=== PATIENT | male | born 1990 | race Caucasian/White ===

== ENCOUNTER 2020-11-16 10:15 | Emergency (ER) | payer SELFPAY ==
--- NOTE | ~2020-11-16 | XR_ITS ---
EXAMINATION: XR abdomen/kub 1V INDICATION: Severe left flank pain TECHNIQUE: Supine views of the abdomen were obtained on 2 radiographs. COMPARISON: CT from today FINDINGS: A 6 mm calcification projects in the left pelvis at the expected location of the distal ure ter. The bowel gas pattern is normal. The visualized lung bases are clear. IMPRESSION: 1. 6 mm stone of the distal left ureter. Reviewed, dictated and finalized at location A.
--- NOTE | ~2020-11-16 | CT_ITS ---
EXAMINATION: CT abdomen pelvis wo con DATE: 11/16/2020 12:29 INDICATION: Left flank pain TECHNIQUE: Computed tomography (CT) of the abdomen and pelvis was performed without intravenous contr ast. The dose-length product (DLP) was 181.41 mGy-cm. Automated exposure control and iterative recons truction technique were employed. COMPARISON: None FINDINGS: The lung bases are clear. The heart size is normal. The liver, spleen, pancreas, gallbladde r, and adrenal glands are normal. There is a 6 mm stone in the left distal ureter which causes mild l eft hydroureteronephrosis. The kidneys are unremarkable. No pathologically enlarged abdominal or pelv ic lymph nodes are identified. There is no free intraperitoneal gas or evidence of bowel obstruction. The appendix is normal. The visualized osseous structures are unremarkable. IMPRESSION: 1. 6 mm stone in the left distal ureter causing mild hydroureteronephrosis. Reviewed, dictated and finalized at location A.
[2020-11-16 10:25] VITALS: BP 149/105; PULSE 109; RESP 20; TEMP 36.3; O2SAT 100
--- NOTE | 2020-11-16 10:52 | PC.NURSE ---
Pt was made aware of needing urine sample. Registration went into pts room and sent pt to urinate without getting sample. Pt made aware again of needing urine. Pt is also on bed asking to take a hot shower. Informed pt that we dont have showers in ED.
[2020-11-16 11:23] LABS: Basophils Percent Auto 0.2 % (0.2-1.2); Hematocrit 43.3 % (42.0-52.0); Hemoglobin 14.4 g/dL (14.0-18.0); Immature Granulocyte Absolute 0.02 K/mm3 (0.00-0.031); Immature Granulocyte Percent A 0.2 % (0-0.5); Lymphocytes Absolute Auto 0.81 K/mm3 (0.9-3.2); Lymphocytes Percent Auto 6.6 % (18.3-44.2); Mean Corpuscular HGB Conc 33.3 g/dl (32-36); Mean Corpuscular Hemoglobin 28.9 pg (26-34); Mean Corpuscular Volume 86.8 fl (80-100); Mean Platelet Volume 9.7 fl (7.4-10.4); Monocytes Absolute Auto 0.5 K/mm3 (0.1-0.6); Monocytes Percent Auto 3.8 % (2.6-8.5); Neutrophils Absolute Auto 10.9 K/mm3 (1.3-6.7); Neutrophils Percent Auto 89.2 % (45.5-73.1); Platelet Count Result 238 k/mm3 (150-375); Red Blood Count 4.99 M/mm3 (4.6-6.20); Red Cell Distribution Width 12.6 % (11.5-14.5); White Blood Count 12.2 K/mm3 (4.5-10.0)
[2020-11-16 11:34] LABS: Anion Gap 10 mmol/L (8-16); Blood Urea Nitrogen 17 mg/dL (9-20); Calcium 9.9 mg/dL (8.4-10.2); Carbon Dioxide 28 mmol/L (22-30); Chloride 100 mmol/L (98-107); Estimated CRCL calculation 68 ml/min; Estimated Glomerular Filt Rate > 60; Glucose 120 mg/dL (75-110); Potassium 3.7 mmol/L (3.4-5.0); Sodium 138 mmol/L (137-145)
[2020-11-16] MEDS: MORPHINE SULFATE (*CRX) 4 MG/ML INJ IV PUSH (12:03)
--- NOTE | 2020-11-16 12:13 | ED.ABDPAIN ---
HPI - Abdominal Pain General Chief Complaint: Abdominal Pain Stated Complaint: left flank pain, bradycardia Time Seen by Provider: 11/16/20 11:31 History of Present Illness HPI narrative: Pain since last night. Started in the left flank. Acutely worse and migrated to the LLQ this morning. Associated with nausea and diarrhea. Feels like previous kidney stone. No hematuria, dysuria, fever. Related Data Allergies Allergy/AdvReac Type Severity Reaction Status Date / Time No Known Allergies Allergy Verified 11/16/20 13:17 Review of Systems Review of Systems: All systems reviewed & are unremarkable except as noted in HPI and below Constitutional: Constitutional: Denies fever(s) Cardiovascular: Cardiovascular: Denies chest pain Respiratory: Respiratory: Denies dyspnea Gastrointestinal: Gastrointestinal: Reports abdominal pain, Reports diarrhea, Reports nausea and Denies vomiting Genitourinary: Genitourinary: Denies hematuria and Denies dysuria Neurologic: Denies confusion and Denies weakness [facility] Past Medical History Medical History (Updated 11/16/20 @ 14:04 by Shivam Leonardo MD) Kidney stone Social History Social History (Updated 11/16/20 @ 14:02 by Shivam Leonardo MD) Gender identity (if verbalized by the patient): Male Sexual Orientation (if Verbalized by the Patient): Straight or Heterosexual Exam Const: General: no acute distress and alert Orientation/consciousness: patient oriented x3 HENMT: Head: normal to inspection Resp: Effort & Inspection: normal respiratory effort Auscultation: clear to auscultation bilaterally, no rales, no rhonchi and no wheezes Cardio: Jugular venous distension: no JVD Rate: regular rate Rhythm: regular rhythm Heart sounds: no murmurs GI: Inspection: non-distended GI Palp: Yes Soft to palpation and Yes Tenderness to palpation present (GI) (LLQ) : General: Yes no CVA tenderness Skin: General skin exam: normal color Neuro: General: patient oriented x3 and moves all extremities Speech: normal speech Extrem: General: no edema Psych: Appearance: well kempt Affect: normal affect Course Vital Signs Vital signs: Vital Signs Temperature 36.3 C L 11/16/20 10:25 Pulse Rate 109 H 11/16/20 10:25 Respiratory Rate 20 11/16/20 10:25 Blood Pressure 149/105 H 11/16/20 10:25 Pulse Oximetry 100 11/16/20 10:25 Temperature 36.3 C L 11/16/20 10:25 Pulse Rate 85 11/16/20 14:26 Respiratory Rate 17 11/16/20 14:26 Blood Pressure 138/76 11/16/20 14:26 Pulse Oximetry 99 11/16/20 14:26 MDM - Abdominal Pain MDM Narrative Medical decision making narrative: 6 mm left ureteral stone. Mild hydro. He should be appropriate for trial of passage at home. Differential Diagnosis Differential diagnosis: Likely calculus of kidney, constipation and diverticulitis Medical Records Attestation: I reviewed the patient's medical records. Lab Data Attestation: I reviewed the patient's lab results. Result diagrams: 11/16/20 11:18 11/16/20 11:18 Labs: Lab Results 11/16/20 11/16/20 11/16/20 Range/Units 11:18 11:18 14:09 WBC 12.2 H (4.5-10.0) K/mm3 RBC 4.99 (4.6-6.20) M/mm3 Hgb 14.4 (14.0-18.0) g/dL Hct 43.3 (42.0-52.0) % MCV 86.8 (80-100) fl MCH 28.9 (26-34) pg MCHC 33.3 (32-36) g/dl RDW 12.6 (11.5-14.5) % Plt Count 238 (150-375) k/mm3 MPV 9.7 (7.4-10.4) fl Immature Gran % (Auto) 0.2 (0-0.5) % Neut % (Auto) 89.2 H (45.5-73.1) % Lymph % (Auto) 6.6 L (18.3-44.2) % Daniels % (Auto) 3.8 (2.6-8.5) % Eos % (Auto) 0.0 (0-4.4) % Baso % (Auto) 0.2 (0.2-1.2) % Lymph # (Auto) 0.81 L (0.9-3.2) K/mm3 Daniels # (Auto) 0.5 (0.1-0.6) K/mm3 Eos # (Auto) 0.0 (0-0.3) K/mm3 Baso # (Auto) 0.0 (0.0-0.1) K/mm3 Abs Immat Gran (auto) 0.02 (0.00-0.031) K/mm3 Absolute Neuts (auto) 10.9 H (1.3-6.7) K/mm3 Absolute Nucleated RBC 0.0
[2020-11-16] MEDS: SODIUM CHLORIDE 0.9% IV 1,000 ML 999 ML IV CONT (12:39)
[2020-11-16] MEDS: TAMSULOSIN HCL 0.4 MG CAPSULE PO (12:40)
[2020-11-16] MEDS: KETOROLAC 30 MG/ML VIAL (*BKC) IV PUSH (13:19)
[2020-11-16 14:21] LABS: Add Urine Microscopic? YES; Appearance Urine Cloudy (Clear); Bacteria Urine Trace /hpf; Bilirubin Urine Negative (Negative); Blood Urine Negative (Negative); Color Urine Yellow (Yellow); Glucose Urine UA Negative (Negative); Ketones Urine Trace mg/dL (Negative); Leukocyte Esterase Ur Negative LEU/UL (Negative); Mucus Urine Heavy /lpf; Nitrate Urine Negative (Negative); Protein Urine 2+ mg/dL (Negative); Specific Grav Ur 1.026 (1.001-1.035); Urobilinogen Urine Negative mg/dL (<2.0); WBC Urine 0-3 /hpf
[2020-11-16 14:26] VITALS: BP 138/76; PULSE 85; RESP 17; O2SAT 99
== END 2020-11-16 14:27 | disposition home or self-care (01) ==
PROVIDERS: Emergency Provider Emergency Medicine
DX: N13.2 Hydronephrosis with renal and ureteral calculous obstruction (principal); Z87.442 Personal history of urinary calculi
CPT/HCPCS: 36415; 74018; 74176; 80048; 81001; 85025; 96361; 96374; 96375; 99284; A9270; J1885; J2270; J7030

== ENCOUNTER 2020-11-20 11:37 | Day surgery (SDC) | payer MEDICAID, SELFPAY ==
[2020-11-20] VITALS (14 sets, daily range): BP systolic 111–142; BP diastolic 58–87; PULSE 52–86; RESP 12–16; TEMP 36.1–36.9; O2SAT 98–100
--- NOTE | ~2020-11-20 | XR_ITS ---
EXAMINATION: XR retrograde pyelo w/stent LT DATE: 11/20/2020 16:43 INDICATION: Left stone extraction TECHNIQUE: Fluoroscopic images from a left internal ureteral stent placement are submitted for review . 36 seconds of fluoroscopy time. 53 fluoroscopic images. FINDINGS: There is a left double-J internal ureteral stent projecting in expected position, with proximal [place] loop at the level of the renal pelvis and distal loop in the pelvis within the bladder lumen. IMPRESSION: 1. Left internal ureteral stent placement. Please refer to real-time procedural findings for detail s. Reviewed, dictated and finalized at location B. IMPRESSION: 1. Left internal ureteral stent placement. Please refer to real-time procedur al findings for details.
--- NOTE | ~2020-11-20 | XR_ITS ---
EXAMINATION: XR abdomen/kub 1V INDICATION: Ureteral stone TECHNIQUE: Supine views of the abdomen were obtained on 2 radiographs. COMPARISON: 11/16/2020 FINDINGS: A 6 mm calcification projects in the left pelvis at the expected location of the distal lef t ureter. A phlebolith is noted in the right pelvis. The bowel gas pattern is normal. The visualized lung bases are clear. IMPRESSION: 1. 6 mm stone in the distal left ureter. Reviewed, dictated and finalized at location A.
--- NOTE | 2020-11-20 13:03 | ED.ABDPAIN ---
HPI - Abdominal Pain General Chief Complaint: Back Pain/Injury Stated Complaint: flank pain Time Seen by Provider: 11/20/20 11:46 Source: patient Mode of arrival: ambulatory Limitations: no limitations History of Present Illness HPI narrative: Patient is a 30 year old male who presents with left flank pain. Patient reports was seen for same on 11/16 and diagnosed with kidney stone. Patient reports he followed up with Dr. Booth. Patient reports he was instructed to return to ED if pain increases. Patient reports increasing pain today. He reports mild nausea. MD elicited complaint: flank pain Related Data Allergies Allergy/AdvReac Type Severity Reaction Status Date / Time No Known Allergies Allergy Verified 11/16/20 13:17 Review of Systems Review of Systems: Narrative: CONSTITUTIONAL: Denies fever, chills, or sweats. EYES: Denies visual changes, redness, or discharge. ENT: Denies rhinorrhea, congestion, sore throat, or otalgia. CARDIOVASCULAR: Denies chest pain, palpitations, or edema. RESPIRATORY: Denies cough or dyspnea. GASTROINTESTINAL: Reports nausea and vomiting GENITOURINARY: Left flank pain SKIN: Denies rash or itching. MUSCULOSKELETAL: Denies back pain, joint pain, or myalgia. NEUROLOGIC: Denies headache, numbness, dizziness, or weakness. PSYCHIATRIC: Denies anxiety or depression. [facility] Past Medical History Medical History Kidney stone Social History Social History (Updated 11/20/20 @ 13:07 by AMOR Diez) Smoking status: Current every day smoker Tobacco type: e-cigarettes/vaping Alcohol intake: never Substance use: current Substance use type: marijuana Other substance usage details: daily Living arrangements: with family Gender identity (if verbalized by the patient): Male Comments At the time of signature, I have reviewed and agree with nursing past medical, surgical, social, and family history unless otherwise noted. Please see nursing chart for further information. There is no relevant family history pertinent to the presenting complaint. Exam Narrative: Exam Narrative: GENERAL: Well-appearing, well-nourished, and in no acute distress. HEAD: Normocephalic, atraumatic. EYES: EOMI. No redness or drainage. Conjunctiva are normal. ENT: Mucous membranes pink and moist. CHEST: No respiratory distress. HEART: Regular rate and rhythm. GI: Soft, nontender without rebound, or guarding. EXTREMITIES: Normal range of motion. SKIN: Warm, dry, no rash. NEURO: No focal deficits. Alert and oriented x3. Gait steady. PSYCH: Normal affect. No signs of depression or anxiety. Course Consultations Consultation #1: Patient was seen by HEENA Aguilera, urology who requests UA and KUB and patient to go to the OR for stone removal this PM. Patient agrees with plan of care. Vital Signs Vital signs: Vital Signs Temperature 36.9 C 11/20/20 12:04 Pulse Rate 63 11/20/20 12:04 Respiratory Rate 12 11/20/20 12:04 Blood Pressure 129/58 L 11/20/20 12:04 Pulse Oximetry 99 11/20/20 12:04 Temperature 36.9 C 11/20/20 12:04 Pulse Rate 63 11/20/20 12:04 Respiratory Rate 12 11/20/20 12:04 Blood Pressure 129/58 L 11/20/20 12:04 Pulse Oximetry 99 11/20/20 12:04 Reviewed MDM - Abdominal Pain Differential Diagnosis Differential diagnosis: Likely abdominal pain, acute appendicitis, calculus of kidney, diverticulitis and pancreatitis Medical Records Attestation: I reviewed the patient's medical records. Critical Care Time Critical Care Time Critical Care Time: No Discharge Plan Discharge Clinical Impression: Left ureteral stone Patient Disposition: Still a Patient Condition: Stable Prescriptions: No Action hydrocodone-acetaminophen 5-325 mg tablet 1 tablet PO Q4H PRN (Reason: pain) Qty: 15 RF: 0 tamsulosin [Flomax] 0.4 mg capsule 0.4 mg PO DAILY Qty: 10 RF: 0 ketorolac 10 mg tab
--- NOTE | 2020-11-20 13:30 | WPDURCON ---
Assessment and Plan Assessment and plan (1) Left ureteral stone: Code(s): N20.1 - Calculus of ureter Status: Acute Assessment and Plan: Patient will go to the OR today: Cystoscopy, left ureteroscopy with stone extraction, possible left stent placement, possible retrograde pyelogram, possible holmium laser. Obtain Consent, keep NPO. Urology Consult Note HPI Date Seen: 11/20/20 Requesting Physician: Temitope Booth MD Primary Care Provider: SOFTWARE IMPLEMENTATION PROJECT MANAGER PHYSICIAN Consult Narrative Narrative: Uri Tse is a 30 year old male who presented to the ER on 11/16/2020 with left flank pain that radiates to the LLQ accompanied by nausea, vomiting, urinary frequency and urgency. He was diagnosed with a 6mm left distal ureteral stone visible on CT/KUB. He was discharged home to follow up in our office, in which he did with Dr. Booth on 11/18/2020 and was planned to then have his stone removed via our outpatient surgery center yesterday, however d/t cost they canceled the procedure. He is back today with ongoing, worsening pain in the LLQ which is well controlled by pain medication and use of marijuana, but when the pain medications no longer help, he is vomiting and having severe pain. He denies fever, but states he is having chills when the pain is severe. He denies hematuria. A KUB is ordered to confirm stone position and urinalysis is pending at this time. Review of Systems Respiratory: Respiratory: Denies no additional respiratory complaints Gastrointestinal: Gastrointestinal: Reports abdominal pain, Reports nausea and Reports vomiting Genitourinary: Genitourinary: Denies hematuria, Denies dysuria, Reports flank pain, Reports urinary frequency, Denies urinary hesitancy, Denies urinary incontinence and Reports urinary urgency [facility] Past Medical History Medical History Kidney stone Social History Social History Smoking status: Current every day smoker Tobacco type: e-cigarettes/vaping Alcohol intake: never Substance use: current Substance use type: marijuana Other substance usage details: daily Living arrangements: with family Gender identity (if verbalized by the patient): Male Meds Home Medications and Allergies Home Medications Medication Instructions Recorded Confirmed Type hydrocodone-acetaminophen 1 tablet PO Q4H PRN #15 tablet 11/16/20 Rx ketorolac 10 mg PO QID 5 Days #10 tablet 11/16/20 Rx tamsulosin [Flomax] 0.4 mg PO DAILY #10 cap 11/16/20 Rx Allergies Allergy/AdvReac Type Severity Reaction Status Date / Time No Known Allergies Allergy Verified 11/16/20 13:17 Vital Signs Vital Signs - 24 hr 11/20/20 12:04 Temperature 98.4 F Pulse Rate 63 Respiratory Rate 12 Blood Pressure 129/58 L Pulse Oximetry 99 Exam Resp: Effort & Inspection: normal respiratory effort Cardio: Rate: regular rate GI: GI Palp: Yes Soft to palpation and Yes Tenderness to palpation present (GI) (LLQ) : General: Yes CVA tenderness on the left Extrem: General: no edema
[2020-11-20 14:08] LABS: Add Urine Microscopic? YES; Appearance Urine Clear (Clear); Bacteria Urine Trace /hpf; Bilirubin Urine Negative (Negative); Blood Urine Negative (Negative); Color Urine Yellow (Yellow); Glucose Urine UA Negative (Negative); Ketones Urine 1+ mg/dL (Negative); Leukocyte Esterase Ur Negative LEU/UL (Negative); Mucus Urine Rare /lpf; Nitrate Urine Negative (Negative); Protein Urine 1+ mg/dL (Negative); RBC Urine 0-2 /hpf (0-2); Specific Grav Ur 1.028 (1.001-1.035); Squamous Epithelial Cell Urine Rare /hpf (Few); Urobilinogen Urine Negative mg/dL (<2.0)
[2020-11-20] MEDS: ONDANSETRON INJ 4 MG/2 ML VIAL IV PUSH ×2 (14:30→17:49)
[2020-11-20] MEDS: MORPHINE SULFATE (*CRX) 4 MG/ML INJ IV PUSH (14:30)
[2020-11-20] MEDS: LACTATED RINGERS 1,000 ML 30 ML IV CONT (14:45)
--- NOTE | 2020-11-20 15:43 | WPDHPUPDATE1 ---
History and Physical Update Update Date/Time: 11/20/20 15:43 History and Physical has been reviewed, including an updated exam of the patient. There are NO changes in the patient's condition. Risks, benefits, and alternatives have been discussed and questions answered. Patient agrees to proceed with procedure.
--- NOTE | 2020-11-20 15:55 | P.PNAN_ITS ---
Anes - Initial Pre Proc Eval Procedure: Operation Date: 11/20/20 16:45 Proposed Procedures p Cystoscopy,Left Ureteroscopy,Left Retrograde Pyelogram,Left Stone Extraction,Possible Holmium Laser,Possible Stent Placement - Temitope Booth MD Date/Time: 11/20/20 15:55 Surgeon: Temitope Booth MD Pre Op Diagnosis: flank pain Patient Data Age: 30 Gender: M Height: 1.85 m Weight: 72.6 kg Last Vital Signs Temp 36.1 C L 11/20/20 14:44 Pulse 57 L 11/20/20 14:44 Resp 16 11/20/20 14:44 BP 131/72 11/20/20 14:44 Pulse Ox 100 11/20/20 14:44 Allergies Allergy/AdvReac Type Severity Reaction Status Date / Time No Known Allergies Allergy Verified 11/20/20 15:26 Home Medications Medication Instructions Recorded Confirmed Type hydrocodone-acetaminophen 1 tablet PO Q4H PRN #15 tablet 11/16/20 11/20/20 Rx ketorolac 10 mg PO QID 5 Days #10 tablet 11/16/20 11/20/20 Rx tamsulosin [Flomax] 0.4 mg PO DAILY #10 cap 11/16/20 11/20/20 Rx Laboratory Tests 11/20/20 13:56 Urine Color Yellow (Yellow) Urine Appearance Clear (Clear) Urine pH 5.0 (5.0-9.0) Ur Specific [place] 1.028 (1.001-1.035) Urine Protein 1+ mg/dL H mg/dL (Negative) Urine Glucose (UA) Negative mg/dL mg/dL (Negative) Urine Ketones 1+ mg/dL H mg/dL (Negative) Ur Blood (Man) Negative (Negative) Urine Nitrate Negative (Negative) Urine Bilirubin Negative (Negative) Urine Urobilinogen Negative mg/dL mg/dL (<2.0) Leukocyte Esterase Rfl Negative DARLENE/UL DARLENE/UL (Negative) Urine RBC 0-2 /hpf /hpf (0-2) Urine WBC 4-6 /hpf H /hpf Ur Squamous Epith Cells Rare /hpf /hpf (Few) Urine Bacteria Trace /hpf /hpf Urine Mucus Rare /lpf /lpf Patient hx anesthesia problems: none Family hx anesthesia problems: none PMFSH Past Medical History Medical History (Updated 11/20/20 @ 15:55 by Ramos Beard MD) Kidney stone Marijuana smoker Social History Social History Smoking status: Current every day smoker Tobacco type: e-cigarettes/vaping Alcohol intake: never Substance use: current Substance use type: marijuana Other substance usage details: daily Living arrangements: with family Gender identity (if verbalized by the patient): Male Anes - Eval Final PreProcedure Day of Procedure 11/20/20 15:55 Patient weight: normal Heart: regular rate and rhythm Lungs: clear to auscultation Airway: Mallampati scale class 1 Neurological: alert and oriented Last oral intake: >/= 8 hours ASA classification: II Emergent: yes Anesthetic plan: proceed Anesthesia type and monitoring: general LMA and standard monitoring Informed Consent: The patient's anesthetic plan and its attendant risks and benefits were discussed with the patient/family/POA. Questions were solicited and answers provided to the satisfaction of the patient/family/POA.
[2020-11-20] MEDS: ceFAZolin 2 GM/D5W 50 ML 2 GM/50 ML BAG IVPB (15:58)
[2020-11-20] MEDS: LIDOCAINE HCL 2% GEL UROJET 10 ML PKG MUCOUS MEM (16:22)
--- NOTE | 2020-11-20 16:39 | P.OP_ITS ---
Procedure Note - Detailed Date of Procedure 11/20/20 Pre-op Diagnosis flank pain and left ureteral stone Post-op Diagnosis same Procedure Performed Cystoscopy, left ureteroscopy, laser lithotripsy, retrograde pyelogram, stent insertion . Surgeon Temitope Booth MD Anesthesia general Findings Impacted 6mm distal ureteral stone Description of Procedure Informed consent was obtained. Patient taken the operating. He was given preoperative IV antibiotics. He was induced with anesthesia. A 22 F cystoscope was inserted through the urethra into the bladder reinspected bladder no mucosal abnormalities. We noted the stone on the jewelry department supervisor film and then placed a wire through the left ureter past the level stone with a dilated with a 10 coaxial dilator. At this point we advanced a semi-rigid ureteral scope in the distal ureter there was a narrowing right at the level of the stone beyond this the 6mm stone was identified. The laser fiber was used to fragment the stone to multiple fragments. Stone fragments were then removed. We inspected the distal half of the ureter and there are no residual stones. A retrograde pyelogram revealed moderate hydronephrosis and no extravasation. Over wire placed a 6 F variable length stent with a curl in the upper pole and curled the bladder the bladder was emptied and 10cc sees a bite lidocaine were instilled patient was wakened incurred a stable condition Drains No Packing No Pathology yes Complications No immediate complications Condition stable Disposition PACU
[2020-11-20] MEDS: oxyCODONE HCL (*CRX) 5 MG TAB IR PO (17:50)
== END 2020-11-20 18:10 | disposition home or self-care (01) ==
LOC: ANHED 13:11 → ANHSURGERY 13:23
PROVIDERS: Emergency Provider Nurse Practitioner; Visit Provider Urology
PROC: (CPT 52352; principal; 2020-11-20 16:45)
DX: N20.1 Calculus of ureter (principal); F17.290 Nicotine dependence, other tobacco product, uncomplicated; F12.90 Cannabis use, unspecified, uncomplicated
CPT/HCPCS: 52356; 74018; 74420; 81001; 82365; 88300; 99285; A9270; C1769; C2617; J0690; J2250; J2270; J2405; J2704; J3010; J7120; Q9966

== ENCOUNTER 2023-05-30 15:17 | Emergency (ER) | payer SELFPAY ==
[2023-05-30 15:26] VITALS: BP 136/82; PULSE 63; RESP 20; TEMP 36.6; O2SAT 100
--- NOTE | 2023-05-30 16:25 | PC.NURSE ---
pt up to desk stating he is going to try his luck tomorrow. seen leaving ed with multiple family members
== END 2023-05-30 19:30 | disposition left against medical advice (07) ==
DX: M54.50 Low back pain, unspecified (principal)
CPT/HCPCS: 99199

== ENCOUNTER 2023-05-31 17:17 | Emergency (ER) | payer SELFPAY ==
--- NOTE | ~2023-05-31 | CT_ITS ---
EXAMINATION: CT abdomen pelvis wo con DATE: 05/31/2023 18:01 INDICATION: Ureteral stone. TECHNIQUE: Computed tomography (CT) of the abdomen and pelvis was performed without intravenous contr ast. Automated exposure control and iterative reconstruction technique were employed. The dose-length product was 335.97 mGy-cm. COMPARISON: CT abdomen and pelvis 11/16/2020 FINDINGS: The visualized portions of the lung bases are clear without pneumonia or pleural effusion. The heart size is normal. No pericardial effusion. The liver, gallbladder, spleen, pancreas, adrenal glands, and kidneys are normal. There is no urolithiasis. There are no dilated loops of bowel. The ap pendix is normal. There are no pathologically enlarged lymph nodes. There is no free intraperitoneal fluid. There is mild lumbar spondylosis. IMPRESSION: 1. No urolithiasis. Reviewed, dictated and finalized at location E. OOM HOST IMPRESSION: 1. No urolithiasis.
[2023-05-31 17:19] VITALS: BP 137/74; PULSE 71; RESP 18; TEMP 36.6; O2SAT 98
--- NOTE | 2023-05-31 17:49 | ED.BACK ---
HPI - Back Pain/Injury General Chief Complaint: Back Pain/Injury Stated Complaint: tailbone pain Time Seen by Provider: 05/31/23 17:27 History of Present Illness HPI Narrative: 32 y/o M reports for multiple medical complaints. Pt states he has been having pain in his tailbone for 2 months. He denies injury or trauma to this area. States sometimes he sits on the ground in the shower which may be causing his pain. Pt reports a history of kidney stones and states he usually gets abnormal referred pain from kidney stones and is concerned he may be having a kidney stone. He reports associated bilateral flank pain, generalized abdominal bloating, urinary frequency and urgency. He denies hematuria, dysuria, fevers, n/v. He is also reporting a change in stool for <1 year. States his stools are thinner, about the width of his finger. He is concerned he may have colon cancer. States his grandfather and brother both have a history of colon cancer. Specifically his brother was dx with renal cancer in his 30s, then colon cancer in his 40s. Pt states his stools have also been softer than normal and states he does not feel as though he can empty his colon fully. He denies melena, hematochezia. Denies personal history of cancer Related Data Allergies Allergy/AdvReac Type Severity Reaction Status Date / Time No Known Allergies Allergy Verified 11/20/20 15:26 Review of Systems Review of Systems: CONSTITUTIONAL: Denies fever, chills, or sweats. EYES: Denies visual changes, redness, or discharge. ENT: Denies rhinorrhea, congestion, sore throat, or otalgia. CARDIOVASCULAR: Denies chest pain, palpitations, or edema. RESPIRATORY: Denies cough or dyspnea. GASTROINTESTINAL: See HPI GENITOURINARY: Denies dysuria or hematuria. SKIN: Denies rash or itching. MUSCULOSKELETAL: See HPI NEUROLOGIC: Denies headache, numbness, or weakness. PSYCHIATRIC: Denies anxiety or depression. [facility] Past Medical History Medical History Kidney stone Marijuana smoker Social History Social History Smoking status: Current every day smoker Tobacco type: e-cigarettes/vaping Alcohol intake: never Substance use: current Substance use type: marijuana Other substance usage details: daily Living arrangements: with family Gender identity (if verbalized by the patient): Male Sexual Orientation (if Verbalized by the Patient): Straight or Heterosexual Exam Narrative: GENERAL: Well-appearing, well-nourished, and in no acute distress. Patient resting comfortably in exam bed. He is pleasant and conversational. HEAD: Normocephalic, atraumatic. EYES: PERRLA and EOMI. ENT: Nares clear, no rhinorrhea or epistaxis. Mucous membranes moist. NECK: Supple. BACK: No midline thoracolumbar spinous tenderness, step-offs or deformities. Tenderness to the coccyx without overlying skin changes, step-offs or deformities. CHEST: Clear to auscultation. No respiratory distress. HEART: Regular rate and rhythm. No murmur heard. Normal peripheral pulses. ABDOMEN: Soft, nontender, nondistended, normal active bowel sounds. No CVA tenderness. No guarding, rebound or rigidity. EXTREMITIES: Normal range of motion. No edema. The BLE strength 5/5. Sensation intact throughout. SKIN: Warm, dry, no rash. NEURO: No focal deficits. Alert and oriented x3 Course Vital Signs Vital signs: Vital Signs Temperature 97.8 F 05/31/23 17:19 Pulse Rate 71 05/31/23 17:19 Respiratory Rate 18 05/31/23 17:19 Blood Pressure 137/74 05/31/23 17:19 Pulse Oximetry 98 05/31/23 17:19 Oxygen Delivery Room Air 05/31/23 17:19 Temperature 97.8 F 05/31/23 17:19 Pulse Rate 71 05/31/23 17:19 Respiratory Rate 18 05/31/23 17:19 Blood Pressure 137/74 05/31/23 17:19 Pulse Oximetry 98 05/31/23 17:19 Oxygen Delivery Room Air 05/31/23 17:19 SUELLEN - Ba
--- NOTE | 2023-05-31 17:54 | PC.NURSE ---
pt taken to ct at this time
--- NOTE | 2023-05-31 18:01 | PC.NURSE ---
Pt returned to room [address]
[2023-05-31] MEDS: SODIUM CHLORIDE 0.9% IV 1,000 ML 999 ML IV CONT (18:15)
[2023-05-31 18:20] LABS: Basophils Percent Auto 0.3 % (0.2-1.2); Eosinophils Percent Auto 0.3 % (0-4.4); Hematocrit 40.7 % (42.0-52.0); Hemoglobin 13.8 g/dL (14.0-18.0); Immature Granulocyte Absolute 0.03 K/mm3 (0.00-0.031); Immature Granulocyte Percent A 0.3 % (0-0.5); Lymphocytes Absolute Auto 2.99 K/mm3 (0.9-3.2); Mean Corpuscular HGB Conc 33.9 g/dl (32-36); Mean Corpuscular Hemoglobin 28.5 pg (26-34); Mean Corpuscular Volume 83.9 fl (80-100); Mean Platelet Volume 9.5 fl (7.4-10.4); Monocytes Absolute Auto 0.9 K/mm3 (0.1-0.6); Monocytes Percent Auto 7.8 % (2.6-8.5); Neutrophils Absolute Auto 7.5 K/mm3 (1.3-6.7); Neutrophils Percent Auto 65.3 % (45.5-73.1); Platelet Count Result 247 k/mm3 (150-375); Red Blood Count 4.85 M/mm3 (4.6-6.20); Red Cell Distribution Width 12.6 % (11.5-14.5); White Blood Count 11.5 K/mm3 (4.5-10.0)
[2023-05-31 18:22] LABS: Appearance Urine Clear (Clear); Bilirubin Urine Negative (Negative); Blood Urine Negative (Negative); Color Urine Yellow (Yellow); Glucose Urine UA Negative (Negative); Ketones Urine Negative (Negative); Leukocyte Esterase Ur Negative LEU/UL (Negative); Nitrate Urine Negative (Negative); Protein Urine Negative (Negative); Specific Grav Ur 1.021 (1.001-1.035); Urobilinogen Urine 0.2 mg/dL (<2.0); pH Urine 5.5 (5.0-9.0)
[2023-05-31 18:36] LABS: Add Urine Microscopic? NO
[2023-05-31 18:49] LABS: Alanine Aminotransferase 22 U/L (6-50); Albumin Level 4.5 g/dL (3.5-5.1); Alkaline Phosphatase 52 U/L (38-126); Anion Gap 8 mmol/L (8-16); Aspartate Amino Transferase 33 U/L (17-59); Blood Urea Nitrogen 15 mg/dL (9-20); Calcium 8.8 mg/dL (8.4-10.2); Carbon Dioxide 28 mmol/L (22-30); Chloride 101 mmol/L (98-107); Estimated CRCL calculation 139 ml/min; Estimated Glomerular Filt Rate > 60; Glucose 90 mg/dL (65-110); Potassium 3.5 mmol/L (3.4-5.0); Sodium 137 mmol/L (137-145)
[2023-05-31 18:59] LABS: Bilirubin,Total 0.3 mg/dL (0.2-1.3)
[2023-05-31 19:30] VITALS: BP 130/87; PULSE 78; RESP 19; O2SAT 100
== END 2023-05-31 19:30 | disposition home or self-care (01) ==
PROVIDERS: Emergency Provider Physician Assistant
DX: R19.5 Other fecal abnormalities (principal); M53.3 Sacrococcygeal disorders, not elsewhere classified; F17.290 Nicotine dependence, other tobacco product, uncomplicated; F12.90 Cannabis use, unspecified, uncomplicated
CPT/HCPCS: 36415; 74176; 80053; 81003; 85025; 96360; 99284; J7030